=== PATIENT | male | born 2000 | race Caucasian/White ===

== ENCOUNTER 2023-02-12 19:37 | Emergency (ER) | payer SELFPAY ==
[~2023-02-12] VITALS: Ht 167.6 cm; Wt 73.8 kg
[2023-02-13] MEDS ORDERED: TOPUD MT (03:24)
[2023-02-13 04:09] VITALS: BP 113/72
== END 2023-02-13 04:09 | disposition home or self-care (01) ==
LOC: ER 19:37
DX: R51.9 Headache, unspecified (principal)
CPT/HCPCS: 99284